=== PATIENT | female | born 1985 | race Caucasian/White ===

== ENCOUNTER 2016-04-28 05:26 | Day surgery (SDC) | payer BC ==
[2016-04-27 14:56] LABS: HEMATOCRIT 34.8 % (36.0-48.0); HEMOGLOBIN 11.5 g/dL (12-16); MCH 27.7 pg (26.0-34.0); MCV 83.9 fL (80.0-100.0); MEAN PLATELET VOLUME 9.5 fL (7.4-10.4); RBC 4.15 10x6/uL (4.00-5.40); RDW 12.7 % (11.5-14.5); WBC 7.4 10x3/uL (4.8-10.8)
[~2016-04-28] VITALS: Ht 152.4 cm; Wt 62.6 kg
[2016-04-28 06:36] VITALS: BP 118/70; Ht 152.4 cm; Wt 62.6 kg
[2016-04-28 06:48] LABS: HCG URINE NEGATIVE (NEGATIVE)
[2016-04-28 06:49] LABS: HCG URINE NEGATIVE (NEGATIVE)
--- NOTE | 2016-04-28 08:41 | NUR ---
BOVIE PAD ON RIGHT THIGH SET 40/40 LOT [id number] EXP 02/02/18
[2016-04-28] MEDS ORDERED: CYCLOBENZAPRINE10 MG PO (09:14)
[2016-04-28] MEDS ORDERED: HYDROCODON-ACE1 EAC7 PO (09:14)
--- NOTE | 2016-04-28 15:35 | NUR ---
1445--PT VOIDS, IV DC'D. MURRAY CIFUENTES 6906--DISCHARGE INSTRUCTIONS GIVEN, PT VERBALIZES UNDERSTANDING. PT OFF UNIT VIA WC. MURRAY CIFUENTES
--- NOTE | 2016-04-29 08:07 | OP ---
PATIENT NAME: KATHY SAWANT MEDICAL RECORD: [id number] :81 LOCATION:[facility] ADMISSION DATE: SURGEON: ANAID BRANDON MD DATE OF OPERATION: 04/28/2016 PREOPERATIVE DIAGNOSIS: Recurrent incisional hernia. POSTOPERATIVE DIAGNOSIS: Recurrent incisional hernia. PROCEDURE PERFORMED: 1. Laparoscopic lysis of adhesions. 2. Laparoscopic explantation of abdominal wall mesh. 3. Laparoscopic recurrent incisional hernia repair with Ventralight ST mesh. ANESTHESIA: General. COMPLICATIONS: None. SPECIMENS: Abdominal wall mesh. COMPLICATIONS: None. Case was clean. ESTIMATED BLOOD LOSS: 20 cc. OPERATIVE COURSE: After consent was obtained, the patient was taken to the operating room and placed in supine position on the operating table. Next, general anesthesia was given via endotracheal intubation. After a timeout was performed that confirmed the correct patient and procedure, the abdomen was prepped and draped in typical sterile fashion. Ioban dressing was placed. Local anesthetic was injected in the left upper quadrant at Mcnulty's point. A stab incision was made with 11-blade scalpel. Using a 5-mm bladeless optical trocar, the abdomen was entered under direct laparoscopic vision. Adequate pneumoperitoneum was achieved. The abdominal cavity was inspected. No evidence of bowel injury. No evidence of bleeding. There were adhesions of the greater omentum along the length of the midline. A 12-mm trocar was placed in the left lateral quadrant, a 5-mm trocar was placed in the left lower quadrant, a 5-mm trocar was then placed in the right lateral quadrant. Laparoscopic lysis of adhesions was performed using electrocautery. There was a significant amount of omentum that had become adherent between the edge of the mesh in the abdominal wall. This was taken down. At this time, it was best felt due to the hernia around the lateral edges of the mesh to explant the mesh. The mesh was cut away from the abdominal wall using electrocautery and removed through the 12-mm trocar and sent for pathology. The recurrent hernia defect was identified. A 6-inch squaxin Ventralight ST mesh was placed into the abdominal wall. The Echo positioning system was deployed using a Pan-Ky suture passer and was passed through the midline abdominal wall to the hernia defect laparoscopically. The mesh was placed against the abdominal wall. It was secured using an OptiFix tack suture tacking device. The Echo positioning system was removed. Once the positioning system was removed, a second row of OptiFix suture tacks were placed in a double crown fashion. Once this was complete, the abdominal cavity was inspected. There was no evidence of bowel injury, no evidence of bleeding. At this time, all remaining instruments removed. The abdomen was desufflated. Trocars removed. The skin was closed with 4-0 Monocryl, Mastisol OPERATIVE REPORT [id number] KATHY SAWANT and Steri-Strips. At the end of the case, all needle and instrument counts were correct. No complications occurred. The patient was extubated and transferred to the PACU in stable condition. 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
== END 2016-04-28 15:15 | disposition home or self-care (01) ==
LOC: D.OPS 05:26
PROVIDERS: Anesthesiology; Surgery
DX: K43.2 Incisional hernia without obstruction or gangrene (principal); Z45.89 Encounter for adjustment and management of other implanted devices